=== PATIENT | female | born 1945 | race Caucasian/White ===

== ENCOUNTER 2016-07-12 12:35 | Emergency (ER) | payer BC ==
[2016-07-12 12:03] LABS: BASOPHILS 0 %; EOSINOPHILS ABSOLUTE 0.16 10/3/uL (0.0-0.53); ER CBC TAT 0 Hrs 07 Mins; HEMATOCRIT 30.6 % (36.0-48.0); HEMOGLOBIN 9.7 g/dL (12.0-16.0); IMMATURE GRANULOCYTES 0.1 %; IMMATURE GRANULOCYTES ABSOLUTE 0.01 10/3/uL (0.0-0.11); LYMPHOCYTES 14.8 %; LYMPHOCYTES ABSOLUTE 1.19 10/3/uL (0.67-4.30); MEAN CORPUS HGB CONC 31.7 g/dL (32.0-36.0); MEAN CORPUSCULAR HEMOGLOB 29.2 pg (26.0-34.0); MEAN CORPUSCULAR VOLUME 92.2 fL (80-100); MONOCYTES 7.6 %; MONOCYTES ABSOLUTE 0.61 10/3/uL (0.21-1.20); NEUTROPHILS 75.5 %; NEUTROPHILS ABSOLUTE 6.06 10/3/uL (2.02-8.40); PLATELET COUNT 170 10/3/uL (150-400); RBC DISTRIBUTION WIDTH 16.7 % (12.0-16.0); RED CELL COUNT 3.32 10/6/uL (4.0-5.6)
[2016-07-12 12:07] LABS: MANUAL DIFF NO %
[2016-07-12 12:11] LABS: INTERNATIONAL NORMAL RATI 1.1 UNITS (-); PROTIME (NOT ORD) 14.2 SEC (12.0-14.5)
[2016-07-12 12:12] LABS: PARTIAL THROMBO TIME 36.4 SEC (22.5-37.2)
[2016-07-12 12:18] LABS: A/G RATIO 0.5 (0.7-1.9); ALBUMIN 2.1 G/DL (3.5-5.0); ALKALINE PHOSPHATASE 122 U/L (45-117); BUN (BLOOD UREA NITROGEN) 23 MG/DL (6-23); CALCIUM, SERUM 8.1 MG/DL (8.5-10.4); CHLORIDE, SERUM 96 MMOL/L (96-112); CO2 (CARBON DIOXIDE) 28 MMOL/L (24-34); GFR AFRICAN AMERICAN 66 ML/MIN (>=60); GFR NON AFRICAN AMERICAN 57 ML/MIN (>=60); POTASSIUM, SERUM 3.2 MMOL/L (3.5-5.3); SGOT(AST) 55 U/L (5-40); SGPT(ALT) 30 U/L (5-65); SODIUM, SERUM 137 MMOL/L (135-148); TOTAL BILIRUBIN 0.9 MG/DL (0-1.2); TOTAL PROTEIN 6.1 G/DL (6.0-8.5)
[2016-07-12 12:20] LABS: LACTATE 0.7 MMOL/L (0.3-2.4)
[2016-07-12 12:25] LABS: GLUCOSE, SERUM 41 MG/DL (60-99)
[~2016-07-12 12:35] MED LIST: ACET500CAP PO; ACETSUP650 PR; ALTA2.5 PO; ASAB PO; ATEN50 PO; BENEMID500 PO; BONIVA150 MG PO; BUM1 PO; CALTRA600D PO; CARDCD180 PO; CORDARONE PO; COREG3 PO; DILT-XR120 MG PO; DSS PO; DUONEB INH; ELIQUIS 5 MG TAB5 MG PO; ENBREL50 MG/M1 SC; ENSURE PLUS PO; FISH-EPA1000 MG PO; FOLIC PO; IMOD PO; ISORDIL10 PO; KDUR10 PO; KLONO1 PO; KLONO5 PO; L20 PO; LEVOTHYROXIN25 MCG PO; LORTAB 5 PO; MAXIMUM D3 PO; NEUR300 PO; NITROSTAT0.4 MG SL; OS500+D PO; P1 PO; PCET PO; PLAVIX PO; PRAVAC PO; PRILOSEC40 MG PO; PROSOURCE PO; PROTONIX PO; REFRESH OPH; RESTASIS OPH; RYTHMOL225 MG PO; SYSTANE OPH; T PO; ULTRAM50 PO; VITAMIN D31000 UNIT PO; VITC500 PO; ZINC220C PO; ZOFRAN4 PO; [UNRECOGNIZED DRUG - REMARK] IV
[2016-07-12 13:33] LABS: PROCALCITONIN 0.12 ng/mL (<0.5)
== END 2016-07-12 16:30 | disposition home or self-care (01) ==
LOC: ER 12:35
PROVIDERS: Nurse Practitioner
DX: T81.31XA Disruption of external operation (surgical) wound, not elsewhere classified, initial encounter (principal); Z79.899 Other long term (current) drug therapy
CPT/HCPCS: 71010; 80053; 81001; 82962; 83605; 84145; 85025; 85610; 85730; 87040; 87070; 87077; 87186; 87205; 93005; 96374; 99285